=== PATIENT | female | born 1970 | race Caucasian/White ===

== ENCOUNTER 2021-07-05 15:53 | Outpatient (CLI) | payer OTHER, SELFPAY ==
[2021-07-05 15:54] LABS: Bacteria 0 SEEN /hpf (None Seen); Mucous, Urine 0 SEEN /hpf (<or=2+); Red Blood Cells-Urine 0 SEEN /hpf (0-5); White Blood Cells 0 SEEN /hpf (0-5)
[2021-07-05 17:10] LABS: Color, Urine Straw (Yellow); Glucose, Dipstick Normal (Normal); Ketone-Dipstick Negative (Negative); Leukocyte Esterase-Dipstick Negative /ul (Negative); Nitrite-Dipstick Negative (Negative); Occult Blood-Urine Negative /ul (Negative); Protein-Dipstick Negative (Negative); Urine Bilirubin Dipstick Negative (Negative); Urine Clarity Clear (Clear); Urine Urobilinogen Normal (Normal)
[2021-07-05 17:18] LABS: Squamous Epithelial Cells - UA 0-5 SEEN /hpf (5-10)
[2021-07-05 17:20] LABS: Hematocrit 37.1 % (37-47); Hemoglobin 9.4 g/dL (12.0-15.0); Red Blood Count 5.23 M/mm3 (4.2-5.4); White Blood Count 9.9 K/mm3 (4.4-11.0)
[2021-07-05 17:21] LABS: Differential Indicated SCAN CRITERIA MET; Mean Corp Hgb Conc 25.3 g/dL (32-36); Mean Corpuscular Volume 70.9 fL (81-99); Mean Platelet Vol. 8.2 fl (6.2-12.0); POSITIVE COUNT NO; POSITIVE DIFFERENTIAL NO; POSITIVE MORPHOLOGY YES; Platelet Count 637 K/mm3 (150-450); RBC Distribution Width CV 21.3 % (11.6-14.6); RBC Distribution Width SD 52.7 fl (35.1-43.9)
[2021-07-05 17:22] LABS: Absolute Lymphocyte Count 1.76 X10^3/uL (0.83-4.51); Absolute Neutrophil Count 7.1 X10^3/uL (2.0-7.7); Basophil# 0.05 X10^3/uL; Basophil% 1.2 % (0-1); Eosinophil# 0.14 X10^3/uL; Eosinophils% 0.5 % (0-5); Lymphocyte # 1.76 X10^3/ul (0.83-4.51); Lymphocyte % 17.8 % (19-41); Monocyte# 0.69 X10^3/uL; Neutrophil % 72.1 % (47-70)
[2021-07-05 17:23] LABS: Anisocytosis 2+; Hypochromasia 2+; Microcytosis 1+; Platelet Estimate MKD INC (ADEQ); Polychromasia RARE; Red Cell Morphology N CHROM NORMAL (NORM C&C)
[2021-07-05 17:24] LABS: Ovalocyte RARE
[2021-07-05 17:26] LABS: ALB/GLOB Ratio 0.7 RATIO (0.9-2.4); AST(SGOT) 10 U/L (15-37); Alanine Aminotransfer ALT/SGPT 22 U/L (13-56); Albumin, Serum 3.1 g/dL (3.2-5.0); Alkaline Phosphatase 124 U/L (45-117); Anion Gap 2 (5-15); BUN 7 mg/dL (7-18); BUN/Creat Ratio 9.6 RATIO (10-20); Calcium,Total 8.4 mg/dL (8.5-10.1); Chloride 106 mmol/L (98-107); Creatinine, Serum 0.73 mg/dL (0.55-1.02); EST Glomerular Filtration Rate 89 mL/min (>60); Est Glom Filt Rate - Afr Amer 108 mL/min (>60); Globulin 4.7 g/dL (2.2-4.2); Glucose 108 mg/dL (74-106); Protein, Total 7.8 g/dL (6.4-8.2); Sodium Level 139 mmol/L (136-145)
[2021-07-06 15:58] LABS: Ferritin 4 ng/mL (8-252); Iron 12 ug/dL (50-170); Iron Binding Capacity,Total 477 ug/dL (250-450)
== END 2021-07-05 23:59 | disposition home or self-care (01) ==
LOC: BIMLAB 15:54
PROVIDERS: PCP Nurse Practitioner Family; Referring Provider Internal Medicine; Visit Provider Internal Medicine
DX: R10.31 Right lower quadrant pain (principal); D64.9 Anemia, unspecified
CPT/HCPCS: 36415; 80053; 81001; 82728; 83540; 83550; 85025

== ENCOUNTER 2021-08-08 14:18 | Outpatient (CLI) | payer OTHER, SELFPAY | END 2021-08-08 23:59 | disposition home or self-care (01) | LOC: BIMLAB 14:19 | PROVIDERS: PCP Nurse Practitioner Family; Referring Provider Nurse Practitioner Family; Visit Provider Nurse Practitioner Family | DX: R05.9 Cough, unspecified (principal); Z20.822 Contact with and (suspected) exposure to COVID-19 | CPT/HCPCS: 87635; U0003; U0005 ==

== ENCOUNTER 2022-01-25 06:12 | Emergency (ER) | payer OTHER, SELFPAY ==
[2022-01-25] VITALS (7 sets, daily range): BP systolic 133–205; BP diastolic 63–99; PULSE 72–93; RESP 16–37; TEMP 36.4–36.7; O2SAT 92–100; BMI 41.8
--- NOTE | 2022-01-25 06:13 | RAD_ITS ---
STUDY: X-RAY - RIGHT WRIST REASON FOR EXAM: Female, 51 years old. Pain and swelling after falling. TECHNIQUE: 3 view(s) of the wrist were obtained. COMPARISON: Forearm radiographs same date. FINDINGS: Acute comminuted distal radial fracture, extending into the articular surface, with impaction and peripheral splaying of fracture fragments and mild dorsal angulation. Mildly displaced ulnar styloid fracture which is difficult to age. No other fracture is evident. The more proximal forearm and more distal carpus are intact. RAD/Wrist min 3 Views IMPRESSION: Acute distal radial fracture described above. Ulnar styloid fracture which is difficult to age. Electronically Signed: Migue Agudelo MD at 6:56 EDT [place] Location ID and State: [address] [place] [address] Tel , Service support ,
--- NOTE | 2022-01-25 06:14 | EDS_ITS ---
HPI History of Present Illness Chief Complaint: Fall Informant: patient Narrative Narrative: Patient is a [id number] 51-year-old female presenting with right wrist pain. Around 230 this morning patient was sleepy but looking at Facebook when she fell. She does not remember exactly how she fell but she thinks she fell backwards. She states she did hit her head but denies any loss of conscious. She developed pain in her right wrist. She did not want a wake her up which is why she waited a couple hours to come in. She denies any numbness or tingling in her hand. She has swelling and significant pain in her right wrist. Has had a prior fracture of her right wrist and was in an external fixator. This was before 2014 when she lived in [place]. Denies any other injuries. Notes that she has had a cough and been sick for couple days. No other complaints at this time. [facility] Medical History Allergies Anemia Back problem Breast lump Broken wrist Cough Cough Depression with anxiety Diarrhea Elbow fracture History of drug abuse History of gallstones History of pneumonia IBS (irritable bowel syndrome) Insomnia RLQ abdominal pain Tobacco abuse Home Medications aripiprazole 15 mg tablet 15 mg PO DAILY #90 tabs 09/07/21 [Rx Last Taken Unknown] trazodone 100 mg tablet 100 mg PO DAILY #90 tabs 09/07/21 [Rx Last Taken Unknown] hydrocodone-acetaminophen 5-325mg 5mg-325mg 1 tab PO Q6H PRN pain 3 days #12 tabs 01/25/22 [Rx Last Taken Unknown] Allergy/AdvReac Type Severity Reaction Status Date / Time No Known Allergies Allergy Verified 08/08/21 13:28 Family History Other Alcoholism Anxiety CVA (cerebral vascular accident) Depression Diabetes Mental disorder Myocardial infarction Suicide attempt Surgical History History of back surgery Social History Smoking Status: Current every day smoker tobacco type: cigarettes alcohol intake: never substance use type: does not use what type of physical activity do you participate in: none ROS ROS ED Constitutional Constitutional ED: Denies chills or fever(s) Eyes Eyes: Denies change in vision ENT ENT ED: Reports rhinorrhea and other Details: nasal congestion Cardiovascular Cardiovascular: Denies chest pain Respiratory/Chest Respiratory/Chest: Reports cough; Denies dyspnea Gastrointestinal Gastrointestinal: Denies abdominal pain or nausea Musculoskeletal Musculoskeletal: Reports other Details: right wrist pain Integumentary Denies rash Neurologic Neurologic: Denies headache(s) or paresthesias Psychiatric Psychiatric: Denies anxiety Hematologic/Lymphatic Hematologic/Lymphatic: Denies easy bleeding or easy bruising EXAM Physical Exam Const Vital Signs: 01/25/22 06:13 01/25/22 08:01 01/25/22 08:05 Temperature 98.1 F 97.6 F L Temperature Source Temporal Pulse Rate 91 82 Pulse Rate [1 (Initial Baseline)] 81 Pulse Rate [2] 86 Pulse Rate [3] 93 Pulse Rate [4] 89 Pulse Rate [5] 77 Respiratory Rate 20 H 25 H Respiratory Rate [1 (Initial Baseline)] 18 Respiratory Rate [2] 37 H Respiratory Rate [3] 20 H Respiratory Rate [4] 20 H Respiratory Rate [5] 18 Blood Pressure 138/82 H 161/80 H Blood Pressure [1 (Initial Baseline)] 161/80 H Blood Pressure [2] 205/99 H Blood Pressure [3] 170/71 H Blood Pressure [4] 171/82 H Blood Pressure [5] 137/72 H Blood Pressure Mean 100 Pulse Ox 96 94 Oxygen Delivery Method Room Air Room Air Oxygen Delivery Method [1 (Initial Baseline)] Nasal Cannula Oxygen Delivery Method [2] Nasal Cannula Oxygen Delivery Method [3] Room Air Oxygen Delivery Method [4] Room Air Oxygen Delivery Method [5] Room Air Oxygen Flow Rate (L/min) [1 (Initial Baseline)] 2 Oxygen Flow Rate (L/min) [2] 2 Fraction of Inspired Oxygen (FIO2) 01/25/22 08:26 01/25/22 08:34 01/25/22 08:37 Temperature Temperature Source Pulse Rate 72 Pulse Rate [1 (Initial Baseline)] Pulse Rate [2] Pulse Rate [3] Pulse Rate [4] Pulse Rate [5] Respiratory Rate 16 Respiratory Rate [1 (Initial Baseline)] Respiratory Rate [2] Respiratory Rate [3] Respiratory Rate [4] Respiratory Rate [5] Blood Pressure 159/92 H Blood Pressure [1 (Initial Baseline)] Blood Pressure [2] Blood Pressure [3] Blood Pressure [4] Blood Pressure [5] Blood Pressure Mean Pulse Ox 97 Oxygen Delivery Method Room Air Room Air Room Air Oxygen Delivery Method [1 (Initial Baseline)] Oxygen Delivery Method [2] Oxygen Delivery Method [3] Oxygen Delivery Method [4] Oxygen Delivery Method [5] Oxygen Flow Rate (L/min) [1 (Initial Baseline)] Oxygen Flow Rate (L/min) [2] Fraction of Inspired Oxygen (FIO2) 57 Positive well nourished and well developed General Appearance ED: well developed and NAD HEENT Reports TM's clear HEENT Narrative: Cerumen impaction of the right ear atraumatic Tympanic Membrane ED: Yes TM's clear left Throat: other Eyes PERRL and EOMs intact bilaterally Neck full ROM Chest Wall inspection of chest normal and palpation of chest normal Resp normal respiratory effort Resp Narrative: coarse breath sounds throughout. Auscultation: Negative for rhonchi or wheezes Cardio regular rhythm and no murmurs Rate: regular rate GI normal to inspection, nondistended, normoactive bowel sounds and non-tender Extremity Extremity Narrative: Deformity and tenderness of the right wrist. Soft tissue swelling of the right hand. Normal range of motion of the fingers. No other pinpoint bony tenderness or deformity appreciated. Neuro oriented x3 and no focal motor deficits Sensorium / Orientation: alert Psych mental status grossly normal Skin no rashes or lesions noted and no wounds PROC Procedures Upper Extremity Splints Upper Extremity Splint: Orthoglass and - (AP) Splint Fabrication: Fabricated Location: Right Procedural Sedation 1 (Initial Baseline): Consent Signed: Yes Any Problems With Anesthesia: No You/Your family experience fever (hyperthermia) w/anesthesia: Unknown Sedation medication: Etomidate Dose: 10 Route: IV Mallampati Score: Class III ASA Classification: I Other Procedures Procedure(s): Right wrist reduction Patient sedated with 10 mg IV etomidate. Monitored with continuous end-tidal CO2, pulse ox and telemetry. Closed reduction attempted of the right wrist. Patient tolerated procedure well with no immediate complications. MDM MDM MDM Narrative Medical decision making narrative: Patient evaluated after mechanical fall with subsequent right wrist injury. She has deformity of her wrist but she also the prior fracture. Will obtain x-ray, place IV and give IV morphine for pain control. Patient's had cold for couple days we will check a COVID swab. Patient states she did land on her back and hit her head however she denies loss of consciousness. She is on any blood thinners. She does not think she needs any head imaging at this time. She has no focal neurologic deficits on exam. No signs of obvious head injury. X-ray interpreted by myself shows a acute distal radius fracture with volar angulation. There also appears to be an associated distal ulnar fracture that is not impacted or significantly angulated. Patient is given IV morphine for pain control. Hematoma block performed using 8 mg of Marcaine 0.5%. Area is initially sterilized with Betadine and allowed to dry. Patient is placed in finger traps for at least 20 minutes. Attempt for reduction performed however patient does not tolerate it. Procedure sedation performed with etomidate. See procedure note. Postreduction x-rays obtained. Interpretation by myself with postreduction x-ray shows resolution of dorsal angulation and improvement of anatomical alignment of the fracture segment. Case discussed with Ortho on- call, Dr. Galloway. He will follow-up with the patient outpatient. Patient is placed in a splint. Is discharged home with pain medication and splint care instructions. She is neurovascularly intact. Radiography Diagnostic Testing: Clinical Impression(s) from Imaging Studies Wrist X-Ray 01/25/22 06:13 IMPRESSION: Acute distal radial fracture described above. Ulnar styloid fracture which is difficult to age. Electronically Signed: Migue Agudelo MD at 6:56 EDT [place] Location ID and State: [facility] / [place] Tel , Service support , Forearm X-Ray 01/25/22 06:40 IMPRESSION: Acute distal radial fracture described above. Ulnar styloid fracture which is difficult to age. Electronically Signed: Migue Agudelo MD at 6:55 EDT [place] Location ID and State: [facility] / [place] Tel , Service support , Discharge Plan Triage Chief Complaint: Fall ED Provider: Lisa Ortega Dx/Rx/DC Orders Clinical Impression: Closed fracture of right distal radius and ulna, Fall Instructions: ED Fracture, Wrist, General Prescriptions: New hydrocodone-acetaminophen 5-325 mg tablet 1 tab PO Q6H PRN (Reason: pain) 3 Days Qty: 12 0RF No Action aripiprazole 15 mg tablet 15 mg PO DAILY Qty: 90 1RF trazodone 100 mg tablet 100 mg PO DAILY Qty: 90 1RF Primary Care Provider: Jai Santos NP Referrals: Nimesh Bosch DO [Med Staff - Active Staff] - 3-5 Days Jai Santos NP, RADIOLOGICAL TECHNOLOGIST-C [Primary Care Provider] - Activity Restrictions/Additional Instructions: You may also take ibuprofen for pain. Ice regularly through the splint. Do not take the splint off or get it wet. Disposition Disposition: Home, Self Care
[2022-01-25] MEDS: Morphine 4 MG/ML Syringe IV ×2 (06:28→07:12)
--- NOTE | 2022-01-25 06:40 | RAD_ITS ---
STUDY: X-RAY - RIGHT RADIUS AND ULNA REASON FOR EXAM: Female, 51 years old. Pain and swelling after injury. TECHNIQUE: 2 view(s) of the forearm. COMPARISON: Wrist radiographs same date. FINDINGS: Acute comminuted distal radial fracture, extending into the articular surface, with impaction and peripheral splaying of fracture fragments and mild dorsal angulation. Mildly displaced ulnar styloid fracture which is difficult to age. No other fracture is evident. The more proximal forearm and more distal carpus are intact. RAD/Forearm 2 Views IMPRESSION: Acute distal radial fracture described above. Ulnar styloid fracture which is difficult to age. Electronically Signed: Migue Agudelo MD at 6:55 EDT [place] Location ID and State: [address] [place] [address] Tel , Service support ,
[2022-01-25] MEDS: Bupivacaine Mpf 0.5% 30 ML VIAL INFILT (07:12)
[2022-01-25] MEDS: Etomidate 20 MG/10 ML Vial 10 MG IV (08:00)
--- NOTE | 2022-01-25 08:10 | CPS ---
Jaw thrust held during procedure for 2-4 minutes to maintain etco2 around 55.
--- NOTE | 2022-01-25 08:33 | RAD_ITS ---
STUDY: X-RAY - RIGHT WRIST REASON FOR EXAM: Female, 51 years old. Post reduction TECHNIQUE: 3 view(s) of the wrist were obtained. COMPARISON: Comparison is made with prior study done earlier today. FINDINGS: The patient is status post reduction of the distal radial and ulnar styloid fractures. There is good alignment. RAD/Wrist min 3 Views IMPRESSION: Satisfactory reduction. Electronically Signed: Trevor Cornejo MD at 8:53 EDT ,
== END 2022-01-25 09:05 | disposition home or self-care (01) ==
PROVIDERS: Emergency Provider Emergency Medicine; PCP Nurse Practitioner Family; Visit Provider Emergency Medicine
DX: S52.501A Unspecified fracture of the lower end of right radius, initial encounter for closed fracture (principal); W19.XXXA Unspecified fall, initial encounter
CPT/HCPCS: 73090; 73110; 87811; 96374; 96375; 96376; 99251; 99283; J7030; A4216; G0463

== ENCOUNTER 2022-02-05 05:39 | Day surgery (SDC) | payer OTHER, SELFPAY ==
--- NOTE | 2022-02-01 09:56 | SUR.PREOP ---
called pt, 02/01, to make sure she had transportation to and from the hospital on friday. her will bring her and taker her home. this call made d/t note on kardex from PAT nurse that said unable to get ride pre op
[2022-02-05] MEDS: Lactated Ringers 1,000 ML 15 ML IV ×2 (06:15→10:14)
[2022-02-05 06:27] VITALS: BP 121/49; PULSE 86; RESP 20; TEMP 36.8; O2SAT 96; BMI 39.9
--- NOTE | 2022-02-05 07:11 | PCM.HP.BLA ---
History and Physical Date of Admission: 02/05/22 [facility] [address] [place] [address] OFFICE VISIT Date of Service:? 01/28/22 MR#: [id number] Acct: [id number] Name:? KRIS RILEY Rep #: [id number] : 1970 ? ? Provider: Dr. Nimesh Bosch DO Age/Sex:? 52/F ? ? Location: [facility] [place] Status: Signed Intake Vital Signs ? 01/25/2206:13 Height 5 ft 3 in Weight: 235 lb 14.314 oz BMI 41.8 BP 138/82 H Respiration 20 H Pulse 91 Temp 98.1 F Temp Source Temporal Pulse Oximetry (%) 96 Intake Visit Reasons:?RIGHT WRIST Is patient in pain?: Yes Pain scale (1-10): 9 Allergies amoxicillin [From Augmentin] Allergy (Mild, Verified 01/28/22 08:54) Diarrheaclavulanic acid [From Augmentin] Allergy (Mild, Verified 01/28/22 08:54) Diarrheasulfamethoxazole [From Bactrim] Adverse Reaction (Intermediate, Verified 01/28/22 08:54) shut liver downtrimethoprim [From Bactrim] Adverse Reaction (Intermediate, Verified 01/28/22 08:54) shut liver down Medications aripiprazole 15 mg tablet 15 mg PO DAILY #90 tabs 09/07/21 [Rx Confirmed 01/28/22] trazodone 100 mg tablet 100 mg PO DAILY #90 tabs 09/07/21 [Rx Confirmed 01/28/22] hydrocodone-acetaminophen 5-325mg 5mg-325mg 1 tab PO Q6H PRN pain 3 days #12 tabs 01/25/22 [Rx Confirmed 01/28/22] hydrocodone-acetaminophen 5-325mg 5mg-325mg 1 tab PO Q6H PRN pain 7 days #28 tabs 01/28/22 [Rx Confirmed 01/28/22] PFSH Medical History? Allergies Anemia Back problem Breast lump Broken wrist Cough Cough Depression with anxiety Diarrhea Elbow fracture History of drug abuse History of gallstones History of pneumonia IBS (irritable bowel syndrome) Insomnia RLQ abdominal pain Tobacco abuse Surgical History? History of back surgery Family History? Other Alcoholism Anxiety CVA (cerebral vascular accident) Depression Diabetes Mental disorder Myocardial infarction Suicide attempt Social History? Smoking Status:? Current every day smoker tobacco type: cigarettes alcohol intake:? never substance use type:? does not use what type of physical activity do you participate in:? none HPI RIGHT WRIST Details: Parts of this documentation were recorded by a scribe, this documentation accurately reflects the service provided and the decisions made by me, Dr. Nimesh Bosch, 01/28/22 0867. KRIS RILEY is a 52 year old F here today for right wrist fracture. She states that she fell on 01/25/22, landing directly on her right wrist. She fell backwards, and believes she fell asleep while standing. Patient had significant pain and went to the ED, where she had xrays which showed a fracture. She was reduced and placed into a splint which she has kept on at all times. Patient is able to move her fingers slightly. She has swelling into her fingers. Patient is taking hydrocodone- acetaminophen twice daily which is helpful. Patient denies any numbness or tingling. She has fractured her right wrist previously in [address] [place] [address], and had to have surgery in [place] which was an external fixator which she was not happy with but did well afterwards. She is right hand dominant. Ortho Exam General General: Yes no acute distress Neurologic: Yes alert and Yes oriented x3 Psychologic: Yes reasonable and appropriate Right Wrist/Hand Skin/Wound: Yes Swelling and Yes capillary refill normal WRIST: able to abduct index finger slightly, ulnar fingers are not moving much with abduction but she can flex and extend all minimally. Swelling noted Left Wrist/Hand Skin/Wound: Yes Swelling Supplemental Info Spoke with the patient about the wrist fracture. She does have a chronic deformity from prior injury/surgery, however this new fracture is intra-articular with greater than 3 fragments recommended the patient have surgery open reduction internal fixation.? Risk benefits alternatives of surgical versus nonsurgical intervention thoroughly reviewed with the patient and her .? She is able to move her wrist 1-2 weeks after surgery, but is not able to lift any weight for about 6 weeks, restrictions may be longer. Spoke with the patient and her about the risks of surgery. She will be in a splint for 1-2 weeks after surgery and then she is able to shower. She needs to work on decreasing her swelling by elevating her wrist for the next week. She may ice her arm and work on moving her fingers. She should not taking any ibuprofen or aleve.? She will likely need occupational therapy following her surgery. She did request and I did provide prescription for [place] No. 28 tabs. Reviewed the pre-operative plans with the patient. Risks and benefits of the procedure were fully explained, including but not limited to infection, neurovascular injury, continued pain, arthritis, stiffness, need for further surgery, re-injury, DVT, PE, general risks of anesthesia. The patient understands all the risks and does wish to proceed with written consent. Follow up for 2 week post op or sooner if pain, swelling, numbness or associated symptoms, or concerns develop.? All questions answered. Patient in agreement of plan. Coding Level of Care Code Off vis,new,level 3 Diagnoses Closed fracture of right distal radius and ulna? S52.501A; S52.601A Assessment and Plan Assessment and Plan (1) Closed fracture of right distal radius and ulna: ?Status:?Acute ? ? ? Medications: New hydrocodone-acetaminophen 5-325 mg 1 TAB? PO Q6H 7 days PRN 28 tabs 0RF pain S52.501A - Unspecified fracture of the lower end of right radius, initial encounter for closed fracture, S52.601A - Unspecified fracture of lower end of right ulna, initial encounter for closed fracture ? 01/28/22 0933 <Electronically signed by Nimesh Bosch DO> Date Nimesh Bosch DO Cosigner Signature: Date (if applicable) ? CC: ? ~ I have re-examined the patient. There are no clinical changes since date of exam
--- NOTE | 2022-02-05 07:30 | RAD_ITS ---
STUDY: X-RAY - RIGHT WRIST REASON FOR EXAM: Intraoperative fluoroscopy for ORIF distal radius. TECHNIQUE: 2 intraoperative images of the wrist were obtained. COMPARISON: Radiographs 01/25/2022. FINDINGS: There is an orthopedic plate and screws transfixing a distal radial fracture. 75.6 seconds of fluoroscopy time was used. Electronically Signed: Joaquim Torre MD at 10:53 EDT , RAD/Wrist min 3 Views IMPRESSION: undefined
[2022-02-05] MEDS: Cefazolin 2 GM in 0.9% Normal Saline 100 ML IV (08:00)
--- NOTE | 2022-02-05 09:34 | OP.PCM_ITS ---
Operative Report Date of Procedure: 02/05/22 Preoperative diagnosis: Displaced comminuted intra-articular distal radius fracture Postoperative diagnosis: [Same] Procedure: ORIF of the distal radius Implants: Synthes distal radius variable angle locking plate Tourniquet time: 64 minutes 250 mmHg Complications: [None] Indication for procedure: 52-year-old female patient who had a ground-level fall sustaining injury to her right wrist. She did sustain an intra-articular comminuted dorsally angulated distal radius fracture that was reduced in the ER. Patient did have prior wrist fracture years ago which was treated with external fixation. Due to the nature of the fracture pattern we discussed risks benefits and alternatives of conservative versus surgical intervention. Including the risk of bleeding infection nerve artery tissue damage need for further surgery continued pain postoperative stiffness need for postoperative physical therapy and the expected postoperative course. Procedure: The patient was met in the preoperative holding area the operative extremity was identified by both patient and physician and marked. Patient was met by anesthesia she was brought back to the operating room on a wheeled cart and transferred to the operating table in the supine position anesthesia was started. A well-padded tourniquet was placed on the upper arm of the operative extremity. She was prepped and draped in the usual sterile fashion. A Time out was called to ensure the proper patient procedure and extremity were being contemplated. A 15 blade scalpel was used to make a linear incision over the FCR tendon this was carried down through the skin and subcutaneous tissue. Electrocautery was used to maintain hemostasis. Lois retractors were used. The FCR tendon sheath was incised and the FCR tendon was mobilized radially. A deep blade scalpel was used to perforate the fascia of the deep FCR tendon she ath and Littler scissors were used to dissect proximally and distally. Blunt dissection was performed a reyna was placed on the radial and ulnar side of the radius. The pronator quadratus was partially torn from the injury and was released off the radial border of the radius with electrocautery and was elevated with a angel elevator. There was increased scarring from previous fracture the Hohmann retractors were then placed deep to this muscle. The fracture site was visualized and was freed of hematoma and clot debris with the use of small rongeur and [place]. The fracture was then reduced with the use of a [place] and ulnar deviation and wrist flexion. This was checked under fluoroscopy to ensure that an adequate reduction could be performed. A plate was then positioned over the fracture site and temporarily fixed to the bone with K wires. A cortical screw was then placed in the shaft we then placed 2 cortical screws in the distal fragment to compress the plate to the bone as well as compress the intra-articular fracture fragments. Due to the prior deformity the the plate did not seat directly on the bone on all aspects of the distal fragment. I did replace one of the cortical screws distally with a locking screw and left one cortical screw which had excellent purchase and sequential locking screws were placed distally this was checked on both AP and lateral projections to ensure screw placement was not penetrating the joint and was in the proper location. Bone drill sleeve was used for the radial styloid screw and a variable angle fashion. The remainder of the cortical screws were placed in the shaft. And the fracture and hardware were visualized in both AP and lateral projections in good alignment and fracture positioning. The wound was thoroughly irrigated. Pronator quadratus was not repairable. A subcutaneous stitch with 3-0 Vicryl was performed followed by 4-0 nylon vertical mattress stitches. Followed by Xeroform 4 x 4 ABD web roll stockinette more web roll and an Naif wrap. The tourniquet was let down. There was no complications intraoperatively and the patient was brought back to the PACU in stable condition where she received an axillary block. All counts were correct.
--- NOTE | 2022-02-05 09:40 | DCINST_ITS ---
Discharge Instructions Dressing / Incision Call your doctor if you observe: Shortness of breath and Chest pain Additional Dressing/Incision Instructions:: Strict elevation of operative extremity above heart for next 72 hours. Ice 15 minutes on 15 minutes off. Continue ice and elevation for 14 days postoperatively. Encourage full finger range of motion. No lifting pushing or pulling more than a coffee cup. Must keep splint on clean and dry. Follow-up in office in 2 week. Do not mix pain medication only take what was given to you postoperatively. May add and supplement with Tylenol and OTC NSAID. Do not combine with alcohol. Narcotic medication can be addictive only take what is needed. Follow Up Care Please Follow Up With: Nimesh Bosch DO When: 2 weeks Test Results: Test results from this visit will be discussed in further detail at your follow- up appointment, if applicable. Discharge Plan Admission Primary Reason for Your Visit: right wrist fracture surgery Attending Provider: Nimesh Bosch Primary Care Provider: Jai Santos NP Discharge Orders/Prescriptions Prescriptions: New oxycodone 5 mg tablet 5 - 10 mg PO Q4H PRN (Reason: pain) 5 Days Qty: 30 0RF No Action hydrocodone-acetaminophen 5-325 mg tablet 1 tab PO Q6H PRN (Reason: pain) 3 Days Qty: 12 0RF duloxetine 60 mg capsule,delayed release(DR/EC) 50 mg PO DAILY Label Comments: TAKE 1 CAPSULE BY MOUTH ONCE DAILY melatonin 10 mg Tablet 10 mg PO QHS trazodone 100 mg tablet 100 mg PO QHS aripiprazole 15 mg tablet 15 mg PO DAILY Qty: 90 1RF Referrals / Follow Up: Jai Santos NP, REGIONAL MERCHANDISING MANAGER-C [Primary Care Provider] - Disposition Disposition (needs filled in before D/C Order can be placed): Home, Self Care
[2022-02-05 09:46] VITALS: BP 121/49; BP 163/81; PULSE 108; RESP 18; TEMP 36.5; O2SAT 96
[2022-02-05 10:00] VITALS: BP 121/49; BP 160/70; PULSE 102; RESP 18; O2SAT 95
[2022-02-05 10:15] VITALS: BP 121/49; BP 153/75; PULSE 101; RESP 18; O2SAT 94
[2022-02-05 10:24] VITALS: BP 121/49; BP 138/61; PULSE 96; RESP 18; TEMP 36.5; O2SAT 94
[2022-02-05] MEDS: Cefazolin 1 GM/50 ML BAG IV (10:46)
[2022-02-05 11:15] VITALS: BP 121/49; BP 137/64; PULSE 93; RESP 16; TEMP 36.6; O2SAT 93
== END 2022-02-05 11:33 | disposition home or self-care (01) ==
LOC: SDC 05:41 → AC 05:42
PROVIDERS: PCP Nurse Practitioner Family; Referring Provider Orthopaedic Surgery; Visit Provider Orthopaedic Surgery
PROC: (CPT 25608; principal; 2022-02-05 07:10)
DX: S52.571A Other intraarticular fracture of lower end of right radius, initial encounter for closed fracture (principal); W18.39XA Other fall on same level, initial encounter; F32.9 Major depressive disorder, single episode, unspecified; F41.9 Anxiety disorder, unspecified; K58.9 Irritable bowel syndrome, unspecified; G47.00 Insomnia, unspecified; F17.210 Nicotine dependence, cigarettes, uncomplicated; Z79.899 Other long term (current) drug therapy
CPT/HCPCS: 25608; 64450; 01830; 73110; 76000; 93005; C1713; J7120; J2405

== ENCOUNTER → 2022-03-11 | Outpatient (CLI) | payer OTHER, SELFPAY ==
[2022-03-11 12:27] LABS: Absolute Lymphocyte Count 1.69 X10^3/uL (0.83-4.51); Basophil# 0.04 X10^3/uL; Basophil% 0.4 % (0-1); Eosinophil# 0.05 X10^3/uL; Eosinophils% 0.5 % (0-5); Hematocrit 34.6 % (37-47); Hemoglobin 8.7 g/dL (12.0-15.0); Lymphocyte # 1.69 X10^3/ul (0.83-4.51); Lymphocyte % 15.7 % (19-41); Mean Corp Hgb Conc 25.1 g/dL (32-36); Mean Corpuscular Hgb 17.4 pg (27.0-32.0); Mean Corpuscular Volume 69.2 fL (81-99); Mean Platelet Vol. 8.6 fl (6.2-12.0); Monocyte# 0.91 X10^3/uL; Monocyte% 8.5 % (0-10); NRBC Flagged by Analyzer 0 % (0-5); Neutrophil # 8.02 X10^3/uL (2.7-7.7); Neutrophil % 74.5 % (47-70); POSITIVE MORPHOLOGY YES; Platelet Count 491 K/mm3 (150-450); RBC Distribution Width CV 21.5 % (11.6-14.6); RBC Distribution Width SD 51.9 fl (35.1-43.9); White Blood Count 10.8 K/mm3 (4.4-11.0)
[2022-03-11 13:10] LABS: Differential Indicated SCAN CRITERIA MET
[2022-03-11 13:38] LABS: ALB/GLOB Ratio 0.7 RATIO (0.9-2.4); AST(SGOT) 14 U/L (15-37); Alanine Aminotransfer ALT/SGPT 20 U/L (13-56); Albumin, Serum 3.2 g/dL (3.2-5.0); Alkaline Phosphatase 160 U/L (45-117); Anion Gap 6 (5-15); BUN 15 mg/dL (7-18); BUN/Creat Ratio 18.6 RATIO (10-20); Chloride 106 mmol/L (98-107); Cholesterol 129 mg/dL (200); EST Glomerular Filtration Rate 79 mL/min (>60); Est Glom Filt Rate - Afr Amer 96 mL/min (>60); Globulin 4.6 g/dL (2.2-4.2); Glucose 87 mg/dL (74-106); High Density Lipoprotein 37 mg/dL; Potassium 4.3 mmol/L (3.5-5.1); Protein, Total 7.8 g/dL (6.4-8.2); Sodium Level 138 mmol/L (136-145); Thyroid Stim Hormone (TSH) 0.82 uIU/mL (0.358-3.74); Triglycerides 74 mg/dL; Very Low Density Lipoprotein 15 mg/dL (5-40)
[2022-03-11 13:39] LABS: Anisocytosis 2+; Differential Comment SCANNED; Macrocytosis 1+; Microcytosis 1+
[2022-03-11 15:06] LABS: Ferritin 3 ng/mL (8-252); Iron 13 ug/dL (50-170); Iron Binding Capacity,Total 513 ug/dL (250-450)
== END | disposition home or self-care (01) ==
LOC: BIMLAB 10:45
PROVIDERS: PCP Nurse Practitioner Family; Referring Provider Physician Assistant; Visit Provider Physician Assistant
DX: Z00.00 Encounter for general adult medical examination without abnormal findings (principal); D64.9 Anemia, unspecified
CPT/HCPCS: 36415; 80053; 80061; 82728; 83540; 83550; 84443; 85025

== ENCOUNTER → 2022-03-19 | Outpatient (CLI) | payer OTHER, SELFPAY ==
--- NOTE | 2022-03-19 13:28 | BI_ITS ---
MAMMOGRAPHY - BILATERAL SCREENING REASON FOR EXAM: Female, 52 years old. Routine annual screening examination. PERTINENT HISTORY: Non-contributory. TECHNIQUE: Digital bilateral breast jazzy (3D mammographic acquisition) in the CC and MLO projections. 2-D mediolateral oblique (MLO) and craniocaudad (CC) views of both breasts were obtained. CAD: Full Field Digital Mammography with Computer Added Detection was performed. COMPARISON: None. Baseline examination. FINDINGS: Breast Composition: The breasts are almost entirely fatty. There are no dominant masses or suspicious calcifications. No other significant abnormalities are identified. There is a 2.1 cm fat-containing nodule in the left axilla. BI/SCRN MAMM (CAD)W/JAZZY BILAT IMPRESSION: Negative screening mammogram. Yearly followup mammogram recommended. (A) ASSESSMENT CATEGORY: BIRADS Category 2: Benign. A letter regarding these results will be sent to the patient by the facility within 30 days. Approximately 10% of breast cancers are not detected by mammography. A normal mammogram should not delay biopsy of a clinically suspicious abnormality. [id number] Electronically Signed: Trevor Cornejo MD at 14:25 EDT ,
== END | disposition home or self-care (01) ==
LOC: OPBI 13:27
PROVIDERS: PCP Nurse Practitioner Family; Referring Provider Physician Assistant; Visit Provider Physician Assistant
DX: Z12.31 Encounter for screening mammogram for malignant neoplasm of breast (principal)
CPT/HCPCS: 77063; 77067

== ENCOUNTER 2022-04-03 11:30 | Outpatient (RCR) | payer OTHER, SELFPAY ==
--- NOTE | 2022-03-06 09:43 | HP.OTEVAL ---
Patient's Visit Information KRIS RILEY is a 52 year old F, referred to Occupational Therapy by Dr. Nimesh Bosch DO, with a diagnosis of right distal radius fx. Date of Evaluation: 03/06/22 Occupational Therapist: Blessing Carlson, RANDI/Virginie, CHT - Subjective This 52 year old female was seen for OT eval with dx of right distal radius fx. pt states 01/25/22 she had a fall. Pt states she went to ER later and found it was fx. pt states she did see. Dr. Bosch 3 days later and had sx on 02/05/22. pt is currently 4 weeks and 1 day s/p from distal radius ORIF. Pt does not work. pt is right handed and currently her and her son are helping with daily tasks. pt would like to return to her PLOF. pt states she is out of her wrist brace all of the time and feeling good. still limited with ROM and strength. 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 - Pain right wrist 4 Pain Intensity Range: 4 - ROM Forearm: right forearm sup 40* left 70* Wrist: right 60/20 left 70/65 - Strength Manager Multicultural: right will test later date left 40# Lateral Pinch: right will test later date left 8# Tripod Pinch: right will test later date left 10# - Sensation Sensation Comments: denies - Quick DASH-Disab of Arm,Shoulder& Hand Quick DASH Score: 61.3625 - Goals Goal:ROM equal to unaffected hand: Yes Goal:Manager Multicultural/Pinch strength at least 75% of unaffected hand: Yes Goal:No pain with affected hand use: Yes Goal:Full use of affected hand in daily activities including: Yes Goal:Decrease scar hypersensitivity: Yes - Rehabilitation General Assessment: pt s/p 4 weeks and 1 day from right distal radius fx. pt demo with limited ROM and weakness increasing need of assistance with ADLs and IADLS. pt would benefit from skilled OT services 2-3x week for 6 weeks to assist pt in returning to her PLOF. Today therapist ed. pt on AROM, PROM forearm and wrist ec. along with scar mtg. pt demo understanding and agree to POC. Rehabilitation Potential: Good - Anticipated Interventions A/AAROM/PROM, Strengthening, Triggerpoint Release, Desensitization, Modalities, Orthoses, Joint Protection/Energy Conservation, Ergonomic Education, Fine Motor Coord/Richar, Education re assistive Equipment, Education re Diagnosis - Visit Plan Frequency: 2-3x /Week Duration: 4-6 Weeks TEXT: Thank you for the opportunity to evaluate your patient. For Medicare and Medicare HMO plans, please review the plan of care and approve it. It will need to be FAXED BACK to us at [phone] for Medicare purposes. Please let me know if there are questions or concerns regarding this plan of care. Physician Signature: Date:
--- NOTE | 2022-04-03 11:52 | HP.OTDCSUM ---
It has been my pleasure to treat KRIS RILEY under orders from Dr. Nimesh Bosch DO, for the diagnosis of right distal radius fx for a total of 9 visit(s). Please see the following information for a summary of their discharge status. % Improvement: 90 Objective/Function: right wrist ROM 65/50. Career Development Director strength right 30# left 35#. pt was ed. on use of scar gel sheet at night to decrease keloid scar-. Tripod pinch. R-8#. Lateral pinch. R-10#. pt advised to use right UE as able- Patient Goals: Regain Strength, Use Hand/Wrist/Arm Normally Again, Be More Independent in ADLS Goal:ROM equal to unaffected hand: Yes Goal:Career Development Director/Pinch strength at least 75% of unaffected hand: Yes Goal:No pain with affected hand use: Yes Goal:Full use of affected hand in daily activities including: Yes Goal:Decrease scar hypersensitivity: Yes Plan: continue POC Discharge Comments: pt was seen for 9 OT session following a right radius ORIF. pt has met goals in OT and reports she has returned to her PLOF with all ADLS and IADLS. If there are questions or concerns regarding this patient's occupational therapy, please fell free to call me at [phone]. Thank you for the referral of this patient. Sincerely, Blessing Carlson, OTR/L, CHT
== END 2022-04-03 12:24 | disposition home or self-care (01) ==
LOC: OT 11:30
PROVIDERS: PCP Nurse Practitioner Family; Referring Provider Orthopaedic Surgery; Visit Provider Orthopaedic Surgery
DX: S52.501A Unspecified fracture of the lower end of right radius, initial encounter for closed fracture (principal); S52.601A Unspecified fracture of lower end of right ulna, initial encounter for closed fracture; Z47.89 Encounter for other orthopedic aftercare
CPT/HCPCS: 97110; 97140; 97166; 97168; 97530

== ENCOUNTER → 2022-04-22 | Outpatient (CLI) | payer OTHER, SELFPAY ==
[2022-04-30 16:41] LABS: HPV APTIMA, High Risk Negative (Negative)
== END | disposition home or self-care (01) ==
PROVIDERS: PCP Nurse Practitioner Family; Visit Provider Registered Nurse
DX: Z12.4 Encounter for screening for malignant neoplasm of cervix (principal)
CPT/HCPCS: 87624; 88175; G0145

== ENCOUNTER → 2022-09-03 | Outpatient (CLI) | payer OTHER, SELFPAY ==
[2022-09-03 12:48] LABS: Absolute Lymphocyte Count 1.55 X10^3/uL (0.83-4.51); Absolute Neutrophil Count 7.2 X10^3/uL (2.0-7.7); Basophil# 0.05 X10^3/uL; Basophil% 0.5 % (0-1); Differential Indicated SCAN CRITERIA MET; Eosinophil# 0.08 X10^3/uL; Eosinophils% 0.8 % (0-5); Hematocrit 33.8 % (37-47); Hemoglobin 8.3 g/dL (12.0-15.0); Lymphocyte # 1.55 X10^3/ul (0.83-4.51); Lymphocyte % 16.1 % (19-41); Mean Corp Hgb Conc 24.6 g/dL (32-36); Mean Corpuscular Hgb 17.2 pg (27.0-32.0); Mean Corpuscular Volume 70.1 fL (81-99); Mean Platelet Vol. 8.8 fl (6.2-12.0); Monocyte# 0.72 X10^3/uL; Monocyte% 7.5 % (0-10); NRBC Flagged by Analyzer 0 % (0-5); Neutrophil # 7.22 X10^3/uL (2.7-7.7); Neutrophil % 74.8 % (47-70); POSITIVE MORPHOLOGY YES; Platelet Count 502 K/mm3 (150-450); RBC Distribution Width CV 21.5 % (11.6-14.6); RBC Distribution Width SD 52.6 fl (35.1-43.9); Red Blood Count 4.82 M/mm3 (4.2-5.4); White Blood Count 9.7 K/mm3 (4.4-11.0)
[2022-09-03 13:15] LABS: Vitamin B12 239 pg/mL (211-911); Vitamin D,25 Hydroxy 18.9 ng/mL
[2022-09-03 13:24] LABS: Anisocytosis 2+; Differential Comment SCANNED; Hypochromasia 1+; Microcytosis 2+
[2022-09-03 13:51] LABS: ALB/GLOB Ratio 0.7 RATIO (0.9-2.4); AST(SGOT) 12 U/L (15-37); Alanine Aminotransfer ALT/SGPT 20 U/L (13-56); Albumin, Serum 3.1 g/dL (3.2-5.0); Alkaline Phosphatase 131 U/L (45-117); Anion Gap 3 (5-15); BUN 13 mg/dL (7-18); BUN/Creat Ratio 17.4 RATIO (10-20); Calcium,Total 8.7 mg/dL (8.5-10.1); Chloride 107 mmol/L (98-107); Creatinine, Serum 0.75 mg/dL (0.55-1.02); EST Glomerular Filtration Rate 86 mL/min (>60); Est Glom Filt Rate - Afr Amer 104 mL/min (>60); Ferritin 2 ng/mL (8-252); Globulin 4.6 g/dL (2.2-4.2); Glucose 79 mg/dL (74-106); Iron 15 ug/dL (50-170); Iron Binding Capacity,Total 507 ug/dL (250-450); Potassium 4.1 mmol/L (3.5-5.1); Protein, Total 7.7 g/dL (6.4-8.2); Sodium Level 137 mmol/L (136-145); Thyroid Stim Hormone (TSH) 1.04 uIU/mL (0.358-3.74)
== END | disposition home or self-care (01) ==
LOC: BIMLAB 10:01
PROVIDERS: PCP Nurse Practitioner Family; Referring Provider Nurse Practitioner Family; Visit Provider Nurse Practitioner Family
DX: D50.9 Iron deficiency anemia, unspecified (principal); F41.8 Other specified anxiety disorders; G47.00 Insomnia, unspecified; E56.9 Vitamin deficiency, unspecified
CPT/HCPCS: 36415; 80053; 82306; 82607; 82728; 83540; 83550; 84443; 85025

== ENCOUNTER 2022-12-05 10:24 | Day surgery (SDC) | payer OTHER, SELFPAY ==
[2022-12-05] VITALS (7 sets, daily range): BP systolic 106–125; BP diastolic 64–76; PULSE 85–94; RESP 18–36; TEMP 36.4–37.2; O2SAT 96–100; BMI 38.5
--- NOTE | 2022-12-05 | COLBX_PTH ---
PATIENT: KRIS RILEY LOC: EN U#:[id number] AGE/SX: 52/F ROOM: RE12/05/[address]: Dr. Kemar Hua DO : 1970 BED: DIS: 12/05/2022 SPEC #: [id number] RECD: 12/05/22 13:15 STATUS: YOUNG SAGE #: [id number] YONNY: 12/05/22 00:[address]: Kemar Hua DEPT: SURGICAL PATHOLOGY RECD BY: Jaspal Arriaza ENTERED: 12/05/22 13:16 SP TYPE: COLON BX OT DR: Jai Santos, HEEL COVER SOFTENER-C Tissues: Ascending colon Procedures: Surgery Specimen Level IV HEADER OPERATION: Colonoscopy with biopsy - open access (MAC) PRE-OP DIAGNOSIS: Screening TISSUE SUBMITTED: Ascending colon polyp biopsy MICROSCOPIC DIAGNOSIS Ascending colon polyp, biopsy: Fragments of hyperplastic polyp. TANMAY:sarina 12/06/2022 MICROSCOPIC DESCRIPTION Slides are reviewed. GROSS DESCRIPTION Received in fixative is one container labeled with the patient's name and designated ascending colon polyp. The specimen consists of multiple irregular fragments of light fisher soft tissue that in aggregate measure 1.0 x 0.5 x 0.1 cm. The specimen is totally submitted in one cassette. / AM:sarina 12/05/2022 TC:1 CPT: 72122
--- NOTE | 2022-12-05 10:44 | PCM.HP.STD ---
HPI - General General Date of Admission: 12/05/22 Date of Service: 12/05/22 Chief Complaint: Positive Cologuard HPI Narrative KRIS RILEY, is a 52 F who presents today for screening colonoscopy. She has not had a colonoscopy in past. She had a Cologuard and it was positive. She does not have abdominal pain. She has not seen any bleeding per rectum. She has no family history of colon cancer. [facility] Medical History (Updated 12/03/22 @ 09:43 by Cyndie Steele) Allergies Anemia Anxiety Back pain Back problem Breast lump Broken wrist Chronic cough Cough Cough Depression Depression with anxiety Diarrhea Elbow fracture History of drug abuse History of gallstones History of pneumonia History of stress test IBS (irritable bowel syndrome) Injury of back Insomnia Iron deficiency anemia MRSA infection Post-menopausal RLQ abdominal pain Shortness of breath on exertion Sleep apnea Smoker Tobacco abuse Vitamin deficiency Wears dentures Wears glasses Home Medications melatonin 10 mg tablet 10 mg PO QHS 01/30/22 [History Last Taken Unknown] aripiprazole 15 mg tablet 15 mg PO DAILY #90 tabs 10/01/22 [Rx Last Taken Unknown] duloxetine 60 mg capsule,delayed release 60 mg PO DAILY #90 caps 10/01/22 [Rx Last Taken Unknown] trazodone 100 mg tablet 100 mg PO QHS #90 tabs 10/01/22 [Rx Last Taken Unknown] Allergy/AdvReac Type Severity Reaction Status Date / Time amoxicillin [From Augmentin] Allergy Mild Diarrhea Verified 09/03/22 09:24 clavulanic acid Allergy Mild Diarrhea Verified 09/03/22 09:24 [From Augmentin] sulfamethoxazole AdvReac Intermediate shut Verified 09/03/22 09:24 [From Bactrim] liver down trimethoprim [From Bactrim] AdvReac Intermediate shut Verified 09/03/22 09:24 liver down Family History Grandmother CVA (cerebral vascular accident) Diabetes Father , due to brain cancer Cancer Brain cancer. Other Alcoholism Anxiety Depression Mental disorder Myocardial infarction Suicide attempt Surgical History (Updated 12/03/22 @ 09:43 by Cyndie Steele) H/O right wrist surgery History of back surgery History of colonoscopy History of elbow surgery History of endometrial ablation Hx laparoscopic cholecystectomy Social History number of children: 1 other: spouse: Juvenal Smoking Status: Current every day smoker tobacco type: cigarettes quit status: has quit before counseling given: counseling >3 minutes alcohol intake: never substance use type: does not use what type of physical activity do you participate in: none ROS Review of Systems ROS Unobtainable: other Constitutional Constitutional: Denies fatigue, fever(s), poor appetite, weight gain or weight loss ENT HEENT: Denies mouth lesions Cardiovascular Cardiovascular: Denies abdominal bloating, abdominal edema or abdominal pain Respiratory/Chest Respiratory/Chest: Denies change in mental status, change in phlegm color, chest congestion or chest tightness Gastrointestinal Gastrointestinal: Denies belching, bloating, change in bowel habits, change in stool character, chewing difficulty, coffee ground emesis, constipation, cramping, diarrhea, dyspepsia, dysphagia, early satiety, excessive flatus, fecal incontinence, heartburn, hematemesis, hematochezia, hemorrhoids, loose stools, melena, nausea, odynophagia, rectal bleeding, tenesmus, vomiting or weight changes Genitourinary Genitourinary: Denies abdominal discomfort, burning urination or itching Musculoskeletal Musculoskeletal: Reports as per HPI; Denies muscle weakness or myalgias Integumentary Integumentary: Denies jaundice Neurologic Neurologic: Denies lack of coordination or weakness Psychiatric Psychiatric: Denies confusion, depression, memory loss, mood swings, paranoia or suicidal ideation Endocrine Endocrinology: Denies systems reviewed and no addt'l complaints, except as documented Hematologic/Lymphatic Hematologic/Lymphatic: Denies anemia, easy bleeding, easy bruising or lymphadenopathy Allergic/Immunologic Allergic/Immunologic: Denies systems reviewed and no addt'l complaints, except as documented Physical Exam Const alert, oriented x3, no apparent distress, healthy appearing and well nourished General Appearance: cooperative, comfortable, well kempt and well developed Orientation / Consciousness: awake and oriented to person HEENT Head and Scalp: normocephalic and atraumatic Face and Sinus: normal facial exam Mouth: oral and palatal mucosa normal Eyes General Eye: normal appearance of both eyes Neck full ROM Lymph Lymphatic: no lymphadenopathy noted Chest inspection of chest normal Resp normal respiratory effort and no use of accessory muscles Cardio regular rate and regular rhythm GI normal to inspection, nondistended, normoactive bowel sounds, soft to palpation, non-tender, non-distended and no masses Auscultation: normoactive bowel sounds Palpation: soft Percussion: normal to percussion Rectal Exam: visual inspection normal and normal sphincter tone no CVA tenderness Back/Spine no CVA tenderness and normal ROM Extremity normal to inspection Peripheral Pulses: Yes pulses 2+ throughout Skin no rashes or lesions noted General Skin Exam: no breakdown, elasticity normal and turgor normal Neuro oriented x3 Motor Exam: strength 5/5 throughout Psych mental status grossly normal Appearance: grossly normal Attitude: calm Activity / Motor Behavior: appropriate eye contact Speech: normal speech Thought Process: normal thought process Thought Content: normal thought content Attention / Concentration: attention grossly intact Memory / Cognition: memory grossly intact Insight: insight good Judgement: judgement good Assessment & Plan Assessment/Plan (1) Encounter for screening for malignant neoplasm of colon: PLAN: I have examined the patient and the H&P has been reviewed. There are no clinical changes since date of exam.
[2022-12-05] MEDS: Lactated Ringers 1,000 ML 15 ML IV (10:50)
--- NOTE | 2022-12-05 11:35 | OP.CCLET_ITS ---
12/05/2022 Jai Santos NP [address] [place] [address] [place] [address] Re : Colonoscopy procedure for Zahida Bruce Dear Mr. Santos This procedure was performed on November. My impressions and recommendations are as follows: Impressions : - One 5 mm polyp in the ascending colon, removed with a cold snare. Resected and retrieved. - The entire examined colon is normal on direct and retroflexion views. - Non-bleeding internal hemorrhoids. Recommendations : - Repeat colonoscopy in 5 years for surveillance. - Continue present medications. My findings are described in the full procedure note, which is enclosed. If I can be of further assistance, please feel free to contact me at . Sincerely, Kemar Hua, 12/05/2022 11:34:42 AM This report has been signed electronically.
--- NOTE | 2022-12-05 11:35 | OP.COLON_ITS ---
Patient Name: Zahida Bruce Procedure Date: 12/05/2022 11:04 AM Date of : 1970 Age: 52 Procedure: Colonoscopy Indications: Screening for colorectal malignant neoplasm Providers: Kemar Hua DO Medicines: Monitored Anesthesia Care Patient Profile: This is a 52 year old female. Refer to note in patient chart for documentation of history and physical. Last Colonoscopy: none. The patient's first colonoscopy is today. Complications: No immediate complications. Procedure: Pre-Anesthesia Assessment: - Prior to the procedure, a History and Physical was performed, and patient medications and allergies were reviewed. The risks and benefits of the procedure and the sedation options and risks were discussed with the patient. All questions were answered and informed consent was obtained. Patient identification and proposed procedure were verified by the physician. Mental Status Examination: normal. Airway Examination: normal oropharyngeal airway and neck mobility. Prophylactic Antibiotics: The patient does not require prophylactic antibiotics. Prior Anticoagulants: The patient has taken no previous anticoagulant or antiplatelet agents. After reviewing the risks and benefits, the patient was deemed in satisfactory condition to undergo the procedure. The anesthesia plan was to use monitored anesthesia care (MAC). Immediately prior to administration of medications, the patient was re-assessed for adequacy to receive sedatives. The heart rate, respiratory rate, oxygen saturations, blood pressure, adequacy of pulmonary ventilation, and response to care were monitored throughout the procedure. The physical status of the patient was re-assessed after the procedure. After I obtained informed consent, the scope was passed under direct vision. Throughout the procedure, the patient's blood pressure, pulse, and oxygen saturations were monitored continuously. The pediatric colonoscope was introduced through the anus and advanced to the cecum, identified by appendiceal orifice and ileocecal valve. The colonoscopy was performed without difficulty. The patient tolerated the procedure well. The quality of the bowel preparation was adequate. Scope In: 11:14:44 AM Scope Withdrawal Time 0 hours 11 minutes 11 seconds Scope Out: 11:30:39 AM Total Procedure Duration Time 0 hours 15 minutes 55 seconds Findings: The perianal and digital rectal examinations were normal. A 5 mm polyp was found in the ascending colon. The polyp was sessile. The polyp was removed with a cold snare. Resection and retrieval were complete. Verification of patient identification for the specimen was done. Estimated blood loss was minimal. The entire examined colon appeared normal on direct and retroflexion views. Non-bleeding internal hemorrhoids were found during retroflexion. The hemorrhoids were medium-sized. Impression: - One 5 mm polyp in the ascending colon, removed with a cold snare. Resected and retrieved. - The entire examined colon is normal on direct and retroflexion views. - Non-bleeding internal hemorrhoids. Recommendation: - Repeat colonoscopy in 5 years for surveillance. - Continue present medications. Procedure Code(s): --- Professional --- 89118, Colonoscopy, flexible; with removal of tumor(s), polyp(s), or other lesion(s) by snare technique CPT copyright 2017 [employer]. All rights reserved. The codes documented in this report are preliminary and upon dielectric press operator review may be revised to meet current compliance requirements. Kemar Hua DO 12/05/2022 11:34:42 AM This report has been signed electronically. Number of Addenda: 0 Note Initiated On: 12/05/2022 11:04 AM
== END 2022-12-05 12:19 | disposition home or self-care (01) ==
LOC: EN 10:25 → AC 10:26
PROVIDERS: PCP Nurse Practitioner Family; Referring Provider Nurse Practitioner Family; Visit Provider Internal Medicine Gastroenterology
PROC: 0DJD8ZZ Inspection of Lower Intestinal Tract, Via Natural or Artificial Opening Endoscopic (ICD-10-PCS; CPT 45378; principal; 2022-12-05 11:25)
DX: Z12.11 Encounter for screening for malignant neoplasm of colon (principal); K64.8 Other hemorrhoids; K63.5 Polyp of colon; K62.5 Hemorrhage of anus and rectum; F17.210 Nicotine dependence, cigarettes, uncomplicated
CPT/HCPCS: 45385; 88305; J7120; J2405

== ENCOUNTER → 2023-03-05 | Outpatient (CLI) | payer OTHER, SELFPAY ==
[2023-03-05 15:22] LABS: Absolute Lymphocyte Count 1.71 X10^3/uL (0.83-4.51); Absolute Neutrophil Count 5.9 X10^3/uL (2.0-7.7); Basophil# 0.05 X10^3/uL; Basophil% 0.6 % (0-1); Eosinophil# 0.13 X10^3/uL; Eosinophils% 1.6 % (0-5); Hematocrit 31.1 % (37-47); Hemoglobin 7.7 g/dL (12.0-15.0); Lymphocyte # 1.71 X10^3/ul (0.83-4.51); Lymphocyte % 20.4 % (19-41); Mean Corp Hgb Conc 24.8 g/dL (32-36); Mean Corpuscular Hgb 17.2 pg (27.0-32.0); Mean Corpuscular Volume 69.4 fL (81-99); Mean Platelet Vol. 9.1 fl (6.2-12.0); Monocyte# 0.54 X10^3/uL; Monocyte% 6.4 % (0-10); NRBC Flagged by Analyzer 0 % (0-5); Neutrophil # 5.93 X10^3/uL (2.7-7.7); Neutrophil % 70.8 % (47-70); POSITIVE MORPHOLOGY YES; Platelet Count 466 K/mm3 (150-450); RBC Distribution Width CV 21.5 % (11.6-14.6); RBC Distribution Width SD 52.5 fl (35.1-43.9); Red Blood Count 4.48 M/mm3 (4.2-5.4); White Blood Count 8.4 K/mm3 (4.4-11.0)
[2023-03-05 15:33] LABS: Differential Indicated SCAN CRITERIA MET
[2023-03-05 15:56] LABS: ALB/GLOB Ratio 0.7 RATIO (0.9-2.4); AST(SGOT) 12 U/L (15-37); Alanine Aminotransfer ALT/SGPT 28 U/L (13-56); Albumin, Serum 3.2 g/dL (3.2-5.0); Alkaline Phosphatase 132 U/L (45-117); Anion Gap 3 (5-15); BUN 13 mg/dL (7-18); BUN/Creat Ratio 17.5 RATIO (10-20); Calcium,Total 8.8 mg/dL (8.5-10.1); Chloride 107 mmol/L (98-107); Creatinine, Serum 0.74 mg/dL (0.55-1.02); EST Glomerular Filtration Rate 87 mL/min (>60); Est Glom Filt Rate - Afr Amer 105 mL/min (>60); Ferritin 2 ng/mL (8-252); Globulin 4.7 g/dL (2.2-4.2); Glucose 112 mg/dL (74-106); Iron 17 ug/dL (50-170); Iron Binding Capacity,Total 544 ug/dL (250-450); Potassium 3.9 mmol/L (3.5-5.1); Protein, Total 7.9 g/dL (6.4-8.2); Sodium Level 139 mmol/L (136-145)
[2023-03-07 14:09] LABS: Deamidated Gliadin IgA 5 units (0-19); Deamidated Gliadin IgG 2 units (0-19); Endomysial Antibody IgA Negative (Negative); Immunoglobulin A 476 mg/dL (87-352); t-Transglutaminase IgA <2 U/mL (0-3)
== END | disposition home or self-care (01) ==
LOC: BIMLAB 13:18
PROVIDERS: PCP Internal Medicine; Referring Provider Internal Medicine; Visit Provider Internal Medicine
DX: D50.9 Iron deficiency anemia, unspecified (principal); E56.9 Vitamin deficiency, unspecified
CPT/HCPCS: 36415; 80053; 82306; 82728; 82784; 83516; 83540; 83550; 85025; 86255

== ENCOUNTER 2023-03-19 13:12 | Outpatient (CLI) | payer OTHER, SELFPAY ==
[2023-03-19 13:24] VITALS: BP 136/73; PULSE 70; RESP 18; TEMP 36.4; O2SAT 100; BMI 21.2
[2023-03-19] MEDS: 0.9% NaCl Peripheral Flush Adult/Peds IV (13:56)
[2023-03-19] MEDS: Iron Sucrose Complex 200 MG in 0.9% Normal Saline (100mL Bag) 100 ML 220 MG IV (13:56)
[2023-03-19] MEDS: 0.9% NaCl IVPB Med Flush (250 mL) 15 ML IV (13:56)
[2023-03-19 15:08] VITALS: BP 119/65; PULSE 67
== END 2023-03-19 13:13 | disposition home or self-care (01) ==
LOC: MEDOUTP 13:13
PROVIDERS: PCP Internal Medicine; Referring Provider Internal Medicine; Visit Provider Internal Medicine
DX: R71.8 Other abnormality of red blood cells (principal)
CPT/HCPCS: 96365; J1756; J7050; A4216

== ENCOUNTER 2023-03-21 09:40 | Outpatient (CLI) | payer OTHER, SELFPAY ==
[2023-03-21] MEDS: 0.9% NaCl IVPB Med Flush (250 mL) 15 ML IV (09:53)
[2023-03-21] MEDS: 0.9% NaCl Peripheral Flush Adult/Peds IV (09:53)
[2023-03-21] MEDS: Iron Sucrose Complex 200 MG in 0.9% Normal Saline (100mL Bag) 100 ML 220 MG IV (09:53)
[2023-03-21 10:00] VITALS: BP 140/67; PULSE 82; RESP 16; TEMP 35.8; O2SAT 97; BMI 38.9
[2023-03-21 10:40] VITALS: BP 120/61; PULSE 64; RESP 16; TEMP 36.3; O2SAT 93
== END 2023-03-21 09:41 | disposition home or self-care (01) ==
PROVIDERS: PCP Internal Medicine; Referring Provider Internal Medicine; Visit Provider Internal Medicine
DX: R71.8 Other abnormality of red blood cells (principal)
CPT/HCPCS: 96365; J1756; J7050; A4216

== ENCOUNTER 2023-03-24 13:15 | Outpatient (CLI) | payer OTHER, SELFPAY ==
[2023-03-24] MEDS: 0.9% NaCl IVPB Med Flush (250 mL) 15 ML IV (13:29)
[2023-03-24] MEDS: 0.9% NaCl Peripheral Flush Adult/Peds IV (13:29)
[2023-03-24] MEDS: Iron Sucrose Complex 200 MG in 0.9% Normal Saline (100mL Bag) 100 ML 220 MG IV (13:29)
[2023-03-24 13:31] VITALS: BP 122/67; PULSE 68; RESP 20; TEMP 36.2; O2SAT 98; BMI 38.9
[2023-03-24 14:32] VITALS: BP 125/66; PULSE 79; RESP 18
== END 2023-03-24 13:16 | disposition home or self-care (01) ==
LOC: MEDOUTP 13:15
PROVIDERS: PCP Internal Medicine; Referring Provider Internal Medicine; Visit Provider Internal Medicine
DX: R71.8 Other abnormality of red blood cells (principal)
CPT/HCPCS: 96365; J1756; J7050; A4216

== ENCOUNTER 2023-03-26 13:16 | Outpatient (CLI) | payer OTHER, SELFPAY ==
[2023-03-26] MEDS: 0.9% NaCl Peripheral Flush Adult/Peds IV (13:25)
[2023-03-26] MEDS: 0.9% NaCl IVPB Med Flush (250 mL) 15 ML IV (13:26)
[2023-03-26 13:31] VITALS: BP 125/51; PULSE 72; RESP 16; TEMP 36.6; BMI 38.9
[2023-03-26] MEDS: Iron Sucrose Complex 200 MG in 0.9% Normal Saline (100mL Bag) 100 ML 220 MG IV (13:35)
[2023-03-26 14:32] VITALS: BP 135/65; RESP 18; TEMP 36.6
== END 2023-03-26 13:17 | disposition home or self-care (01) ==
LOC: MEDOUTP 13:16
PROVIDERS: PCP Internal Medicine; Referring Provider Internal Medicine; Visit Provider Internal Medicine
DX: R71.8 Other abnormality of red blood cells (principal)
CPT/HCPCS: 96365; J1756; J7050; A4216

== ENCOUNTER 2023-03-28 09:49 | Outpatient (CLI) | payer OTHER, SELFPAY ==
[2023-03-28 10:11] VITALS: BP 132/60; PULSE 83; RESP 16; TEMP 36.3; O2SAT 97; BMI 38.9
[2023-03-28] MEDS: 0.9% NaCl IVPB Med Flush (250 mL) 15 ML IV (10:17)
[2023-03-28] MEDS: Iron Sucrose Complex 200 MG in 0.9% Normal Saline (100mL Bag) 100 ML 220 MG IV (10:17)
[2023-03-28] MEDS: 0.9% NaCl Peripheral Flush Adult/Peds IV (10:17)
[2023-03-28 11:04] VITALS: BP 115/63; PULSE 70; RESP 16
== END 2023-03-28 09:50 | disposition home or self-care (01) ==
LOC: MEDOUTP 09:49
PROVIDERS: PCP Internal Medicine; Referring Provider Internal Medicine; Visit Provider Internal Medicine
DX: R71.8 Other abnormality of red blood cells (principal)
CPT/HCPCS: 96365; J1756; J7050; A4216

== ENCOUNTER → 2023-03-31 | Outpatient (CLI) | payer OTHER, SELFPAY ==
--- NOTE | 2023-03-31 12:29 | BI_ITS ---
MAMMOGRAPHY - BILATERAL SCREENING REASON FOR EXAM: Female, 53 years old. Routine annual screening examination. PERTINENT HISTORY: Non-contributory. TECHNIQUE: Digital bilateral breast jazzy (3D mammographic acquisition) in the CC and MLO projections. 2-D mediolateral oblique (MLO) and craniocaudad (CC) views of both breasts were obtained. CAD: Full Field Digital Mammography with Computer Added Detection was performed. COMPARISON: Comparison is made with prior study April 18, 2022. FINDINGS: Breast Composition: The breasts are almost entirely fatty. There are no dominant masses or suspicious calcifications. Fat-containing left axillary lymph node. No other significant abnormalities are identified. There has been no significant change since the prior study. BI/SCRN MAMM (CAD)W/JAZZY BILAT IMPRESSION: Stable bilateral screening mammogram. Yearly follow-up mammogram recommended. (A) ASSESSMENT CATEGORY: BIRADS Category 2: Benign. A letter regarding these results will be sent to the patient by the facility within 30 days. Approximately 10% of breast cancers are not detected by mammography. A normal mammogram should not delay biopsy of a clinically suspicious abnormality. [id number] Electronically Signed: Trevor Cornejo MD at 13:27 EST ,
== END | disposition home or self-care (01) ==
LOC: OPBI 12:27
PROVIDERS: PCP Internal Medicine; Referring Provider Internal Medicine; Visit Provider Internal Medicine
DX: Z12.31 Encounter for screening mammogram for malignant neoplasm of breast (principal)
CPT/HCPCS: 77063; 77067

== ENCOUNTER → 2023-05-06 | Outpatient (CLI) | payer OTHER, SELFPAY | END | disposition home or self-care (01) | LOC: SL 13:05 | PROVIDERS: PCP Internal Medicine; Referring Provider Internal Medicine; Visit Provider Internal Medicine | DX: G47.33 Obstructive sleep apnea (adult) (pediatric) (principal) | CPT/HCPCS: 95806 ==

== ENCOUNTER → 2023-06-11 | Outpatient (CLI) | payer OTHER, SELFPAY ==
[2023-06-11 15:37] LABS: Absolute Lymphocyte Count 1.61 X10^3/uL (0.83-4.51); Absolute Neutrophil Count 5.2 X10^3/uL (2.0-7.7); Basophil# 0.03 X10^3/uL; Basophil% 0.4 % (0-1); Eosinophils% 1.3 % (0-5); Hematocrit 44.2 % (37-47); Hemoglobin 12.9 g/dL (12.0-15.0); Lymphocyte # 1.61 X10^3/ul (0.83-4.51); Lymphocyte % 21.5 % (19-41); Mean Corp Hgb Conc 29.2 g/dL (32-36); Mean Corpuscular Hgb 25.8 pg (27.0-32.0); Mean Corpuscular Volume 88.4 fL (81-99); Mean Platelet Vol. 8.8 fl (6.2-12.0); Monocyte# 0.59 X10^3/uL; Monocyte% 7.9 % (0-10); NRBC Flagged by Analyzer 0 % (0-5); Neutrophil # 5.15 X10^3/uL (2.7-7.7); Neutrophil % 68.8 % (47-70); POSITIVE MORPHOLOGY YES; Platelet Count 382 K/mm3 (150-450); RBC Distribution Width CV 20.3 % (11.6-14.6); RBC Distribution Width SD 68.1 fl (35.1-43.9); White Blood Count 7.5 K/mm3 (4.4-11.0)
[2023-06-11 15:50] LABS: Differential Indicated SCAN CRITERIA MET
[2023-06-11 16:07] LABS: Differential Comment SCANNED
[2023-06-11 16:11] LABS: Ferritin 6 ng/mL (8-252); Iron 28 ug/dL (50-170); Iron Binding Capacity,Total 450 ug/dL (250-450)
== END | disposition home or self-care (01) ==
LOC: BIMLAB 13:42
PROVIDERS: PCP Internal Medicine; Referring Provider Internal Medicine; Visit Provider Internal Medicine
DX: D50.9 Iron deficiency anemia, unspecified (principal)
CPT/HCPCS: 36415; 82728; 83540; 83550; 85025

== ENCOUNTER → 2023-06-17 | Outpatient (CLI) | payer OTHER, SELFPAY | END | disposition home or self-care (01) | LOC: SL 11:09 | PROVIDERS: PCP Internal Medicine; Referring Provider Internal Medicine; Visit Provider Internal Medicine | DX: G47.10 Hypersomnia, unspecified (principal) | CPT/HCPCS: 95806 ==

== ENCOUNTER → 2023-07-21 | Outpatient (CLI) | payer OTHER, SELFPAY | END | disposition home or self-care (01) | PROVIDERS: PCP Internal Medicine; Referring Provider Internal Medicine; Visit Provider Internal Medicine | DX: G47.33 Obstructive sleep apnea (adult) (pediatric) (principal); G47.31 Primary central sleep apnea | CPT/HCPCS: 95811 ==

== ENCOUNTER → 2023-09-10 | Outpatient (CLI) | payer OTHER, SELFPAY ==
[2023-09-10 17:27] LABS: Absolute Lymphocyte Count 1.59 X10^3/uL (0.83-4.51); Absolute Neutrophil Count 7.1 X10^3/uL (2.0-7.7); Basophil# 0.03 X10^3/uL; Basophil% 0.3 % (0-1); Eosinophil# 0.11 X10^3/uL; Eosinophils% 1.1 % (0-5); Hematocrit 45.1 % (37-47); Lymphocyte # 1.59 X10^3/ul (0.83-4.51); Lymphocyte % 16.5 % (19-41); Mean Corpuscular Hgb 29.5 pg (27.0-32.0); Mean Corpuscular Volume 94.9 fL (81-99); Mean Platelet Vol. 9.2 fl (6.2-12.0); Monocyte# 0.79 X10^3/uL; Monocyte% 8.2 % (0-10); NRBC Flagged by Analyzer 0 % (0-5); Neutrophil # 7.11 X10^3/uL (2.7-7.7); Neutrophil % 73.6 % (47-70); Platelet Count 358 K/mm3 (150-450); RBC Distribution Width CV 17.3 % (11.6-14.6); RBC Distribution Width SD 61.1 fl (35.1-43.9); Red Blood Count 4.75 M/mm3 (4.2-5.4); White Blood Count 9.7 K/mm3 (4.4-11.0)
[2023-09-10 17:55] LABS: ALB/GLOB Ratio 0.8 RATIO (0.9-2.4); AST(SGOT) 23 U/L (15-37); Alanine Aminotransfer ALT/SGPT 39 U/L (13-56); Albumin, Serum 3.3 g/dL (3.2-5.0); Alkaline Phosphatase 102 U/L (45-117); Anion Gap 3 (5-15); BUN 10 mg/dL (7-18); BUN/Creat Ratio 11.5 RATIO (10-20); Chloride 107 mmol/L (98-107); Cholesterol 165 mg/dL (200); Creatinine, Serum 0.87 mg/dL (0.55-1.02); EST Glomerular Filtration Rate 72 mL/min (>60); Est Glom Filt Rate - Afr Amer 88 mL/min (>60); Ferritin 17 ng/mL (8-252); Globulin 4.3 g/dL (2.2-4.2); Glucose 86 mg/dL (74-106); High Density Lipoprotein 47 mg/dL; Iron 54 ug/dL (50-170); Iron Binding Capacity,Total 398 ug/dL (250-450); Protein, Total 7.6 g/dL (6.4-8.2); Sodium Level 140 mmol/L (136-145); Triglycerides 159 mg/dL; Very Low Density Lipoprotein 32 mg/dL (5-40)
== END | disposition home or self-care (01) ==
LOC: BIMLAB 14:48
PROVIDERS: PCP Internal Medicine; Visit Provider Internal Medicine
DX: Z13.6 Encounter for screening for cardiovascular disorders (principal); D64.9 Anemia, unspecified
CPT/HCPCS: 36415; 80053; 80061; 82728; 83540; 83550; 85025

== ENCOUNTER → 2023-10-30 | Outpatient (CLI) | payer OTHER, SELFPAY ==
[2023-10-30 12:27] LABS: Absolute Lymphocyte Count 1.55 X10^3/uL (0.83-4.51); Absolute Neutrophil Count 6.1 X10^3/uL (2.0-7.7); Basophil# 0.05 X10^3/uL; Basophil% 0.6 % (0-1); Eosinophil# 0.12 X10^3/uL; Eosinophils% 1.4 % (0-5); Hematocrit 48.6 % (37-47); Hemoglobin 15.3 g/dL (12.0-15.0); Lymphocyte # 1.55 X10^3/ul (0.83-4.51); Lymphocyte % 18.1 % (19-41); Mean Corp Hgb Conc 31.5 g/dL (32-36); Mean Corpuscular Hgb 30.2 pg (27.0-32.0); Mean Corpuscular Volume 95.9 fL (81-99); Mean Platelet Vol. 8.8 fl (6.2-12.0); Monocyte# 0.66 X10^3/uL; Monocyte% 7.7 % (0-10); NRBC Flagged by Analyzer 0 % (0-5); Neutrophil # 6.14 X10^3/uL (2.7-7.7); Neutrophil % 71.8 % (47-70); Platelet Count 326 K/mm3 (150-450); RBC Distribution Width CV 14.5 % (11.6-14.6); RBC Distribution Width SD 50.3 fl (35.1-43.9); Red Blood Count 5.07 M/mm3 (4.2-5.4); White Blood Count 8.6 K/mm3 (4.4-11.0)
[2023-10-30 12:45] LABS: T4 Free Direct 0.97 ng/dL (0.76-1.46); Thyroid Stim Hormone (TSH) 0.85 uIU/mL (0.358-3.74)
[2023-10-30 15:37] LABS: Hemoglobin A1c 5.3 % (3.8-5.6)
[2023-10-31 15:08] LABS: Adrenocorticotropic Hormone 20.3 pg/mL (7.2-63.3)
== END | disposition home or self-care (01) ==
LOC: BIMLAB 09:32
PROVIDERS: PCP Internal Medicine; Referring Provider Nurse Practitioner; Visit Provider Nurse Practitioner
DX: R53.83 Other fatigue (principal)
CPT/HCPCS: 36415; 82024; 83036; 84439; 84443; 85025

== ENCOUNTER 2024-01-23 15:00 | Outpatient (RCR) | payer OTHER, SELFPAY ==
--- NOTE | 2024-01-14 17:57 | HP.PTEVAL ---
Patient's Visit Information Visit Information Visit Information: KRIS RILEY is a 53 year old F referred to Physical Therapy by USMAN Luna with a diagnosis of R pes anserine bursitis. Date of Evaluation: 01/14/24 Physical Therapist: Son Foley DPT Visit Plan Frequency: 2x /Week Duration: 4 Weeks Plan: Start with US to medial to medial joint line and pes anserine region of R knee. Adductors stretching, and HS stretching. Once symptoms have reduced add in quad strengthening. Subjective Subjective: Pt. is here today for her initial evaluation with diagnosis of R pes anserine bursitis. Pt. reports having increased pain for a few weeks now without mech an injury. Pt. reports a gradual increase in symptoms. Pt. report her knee is always pain, but is worse with standing, walking and stairs. Pt. is not currently working. She reports increased pain with all ADLs. No issues with sleeping, no N/T noted. Pt points to medial joint line when asked about pain. Pt. reports not trialing ice or heat, no relief with medications. She has been taking steroids without change in symptoms. Pt. is hopeful to reduce symptoms in order to complete all daily activities without limitations. Pain R knee: Pain Intensity (Out of 10): 7 Pain Intensity Range: 2 and 9 Objective Objective: POSTURE: Pt. has a wide ERICK in stance. PALPATION: Pt. has increased tenderness at medial joint line. When I initially palpated her pes anserine region on the R leg it was not painful, but when I did again she reports being sore. NEURO: Normal DTR of B patella and achilles tendons. Pt. is able to rise on heels and toes without issues. Pt. has normal sensation throughout BLEs. ROM: R knee: PROM 0-0-105deg. L knee 0-0-115deg. MMT: RLE: ankle 5/5 throughout; knee: ext 7.1# increase NW, flexion 15.7#; hip: flexion 6.1#. LLE: ankle 5/5 throughout; knee: ext 15.6#, flexion 16.1#; hip: flexion 10.3#. GAIT: Pt. has increased B hip ER with gait and tends to have decreased knee flexion during swing. Normal knee extension noted during stance phase. STAIRS: completed with reciprocal pattern and 2 HR. Increased pain noted with R stance phase with both ascending and decending. Special Tests R Knee Juan - Meniscus: Negative R Knee Anterior Drawer - ACL: Negative R Knee Posterior Drawer - PCL: Negative R Knee Valgus - MCL: Negative R Knee Varus - LCL: Negative Balance/Special Test Scores Lower Extremity Functional Score: 20 Goals Goal 1:: LTG: Pt. to be I with HEp. Goal Time Frame: 2-4 Weeks Goal 2:: LTG: pt. to be able to ambulate for 500' without increase in R knee pain Goal Time Frame: 4-6 Weeks Goal 3:: LTG: Pt. to have symmetrical strength between BLEs. Goal Time Frame: 4-6 Weeks Goal 4:: LTG: pt. to have no pain with palpation of medial joint line of R knee. Goal Time Frame: 4-6 Weeks Rehabilitation Potential Physical Therapy Diagnosis: Pt. has signs and symptoms consistent with R pes anserine bursitis. Pt. has marked R LE weakness, most notably with her quad. She has marked B knee hypomobility, but none painful with over pressures. Her pain at a little but higher than than her pes anserine bursa, but did at times report pain at her bursa. I would not be surprised if she had some medial compartment arthritis. Hard to determine any meniscal issues, but would have to be more of a degenerative type due to no mechanical accident. I recommend trying some modalities to reduce her symptoms then progressing her strength as tolerated. Rehabilitation Potential: Good Anticipated Interventions Patient/Client Instruction: Educate patient on: Condition, Risk Factors and Benefits of Fitness Program For the Purpose of:: To improve health and function, To foster healthy habits, To improve decision making, To facilitate caregiver knowledge, To improve self management, To prevent re-injury and To improve ability to perform tasks related to life management Therapeutic Exercise to Include: Strength training, Power training, Postural training, Passive ROM and Active ROM For the Purpose of:: To decrease pain, To increase ROM, To improve nutrient delivery to tissue, To increase oxygenation perfusion, To improve muscle performance and motor function, To improve ability to perform ADL's and To increase tolerance to activity/condition/position Cryotherapy (ice pack, ice massage): Yes Thermo therapy (hot pack): Yes Ultrasound (thermal/non thermal): Yes For the Purpose of:: To decrease pain, To decrease swelling/inflammation and To increase ROM Text: Thank you for the opportunity to evaluate your patient. For Medicare and Medicare HMO plans, please review the plan of care and approve it. It will need to be FAXED BACK to us at [phone] for Medicare purposes. For Medicare only, by signing this I certify the plan of care. Please let me know if there are questions or concerns regarding this plan of care. Physician Signature: Date:
--- NOTE | 2024-06-24 07:11 | HP.PT.NRP ---
Patient Information Patient Information: KRIS RILEY was seen in my office for initial evaluation on 01/14/24. The following Plan of Care was established for this patient: POC Established Initial Frequency: 2x /Week Initial Duration: 4 Weeks Anticipated Interventions Patient/Client Instruction: Educate patient on: Condition, Risk Factors and Benefits of Fitness Program For the Purpose of:: To improve health and function, To foster healthy habits, To improve decision making, To facilitate caregiver knowledge, To improve self management, To prevent re-injury and To improve ability to perform tasks related to life management Therapeutic Exercise to Include: Strength training, Power training, Postural training, Passive ROM and Active ROM For the Purpose of:: To decrease pain, To increase ROM, To improve nutrient delivery to tissue, To increase oxygenation perfusion, To improve muscle performance and motor function, To improve ability to perform ADL's and To increase tolerance to activity/condition/position Cryotherapy (ice pack, ice massage): Yes Thermo therapy (hot pack): Yes Ultrasound (thermal/non thermal): Yes For the Purpose of:: To decrease pain, To decrease swelling/inflammation and To increase ROM Last Seen Last Seen: This patient was last seen in our office 01/23/24. Pertinent comments regarding their Physical therapy will appear below: Pt. was seen for 4 visits, but has not been back to PT since. Pt. will be DC from PT at this point in time. At this point I will be discontinuing this patient from physical therapy. I would be happy to see this patient again in the future if found appropriate by the physician. Thank you! Son Foley, DPT Balance/Gait/Functional tests Balance/Special Test Scores Lower Extremity Functional Score: 20
== END 2024-01-23 19:00 | disposition home or self-care (01) ==
LOC: PT 15:00
PROVIDERS: PCP Internal Medicine; Referring Provider Nurse Practitioner; Visit Provider Nurse Practitioner
DX: M70.50 Other bursitis of knee, unspecified knee (principal)
CPT/HCPCS: 97035; 97110; 97161

== ENCOUNTER → 2024-04-02 | Outpatient (CLI) | payer OTHER, SELFPAY ==
--- NOTE | 2024-04-02 10:33 | BI_ITS ---
MAMMOGRAPHY - BILATERAL SCREENING REASON FOR EXAM: Female, 54 years old. Routine annual screening examination. PERTINENT HISTORY: Non-contributory. History of left excisional breast biopsy. TECHNIQUE: Digital bilateral breast jazzy (3D mammographic acquisition) in the CC and MLO projections. 2-D mediolateral oblique (MLO) and craniocaudad (CC) views of both breasts were obtained. CAD: Full Field Digital Mammography with Computer Added Detection was performed. COMPARISON: Comparison is made with prior study dated March 31, 2023 and March 19, 2022. FINDINGS: Breast Composition: The breasts are almost entirely fatty. There are no dominant masses or suspicious calcifications. No other significant abnormalities are identified. There has been no significant change since the prior study. BI/SCRN MAMM (CAD)W/JAZZY BILAT IMPRESSION: Stable bilateral screening mammogram. Yearly follow-up mammogram recommended. (A) ASSESSMENT CATEGORY: BIRADS Category 1: Negative. A letter regarding these results will be sent to the patient by the facility within 30 days. Approximately 10% of breast cancers are not detected by mammography. A normal mammogram should not delay biopsy of a clinically suspicious abnormality. [id number] Electronically Signed: Trevor Cornejo MD at 11:19 EST ,
== END | disposition home or self-care (01) ==
LOC: OPBI 10:33
PROVIDERS: PCP Internal Medicine; Referring Provider Internal Medicine; Visit Provider Internal Medicine
DX: Z12.31 Encounter for screening mammogram for malignant neoplasm of breast (principal)
CPT/HCPCS: 77063; 77067

== ENCOUNTER → 2024-07-21 | Outpatient (CLI) | payer OTHER, SELFPAY ==
[2024-07-21 12:34] LABS: Absolute Lymphocyte Count 1.22 X10^3/uL (0.83-4.51); Absolute Neutrophil Count 5.9 X10^3/uL (2.0-7.7); Basophil# 0.04 X10^3/uL; Basophil% 0.5 % (0-1); Eosinophils% 1.2 % (0-5); Hemoglobin 16.3 g/dL (12.0-15.0); Lymphocyte # 1.22 X10^3/ul (0.83-4.51); Mean Corpuscular Hgb 30.8 pg (27.0-32.0); Mean Corpuscular Volume 96.4 fL (81-99); Mean Platelet Vol. 9.2 fl (6.2-12.0); Monocyte# 0.87 X10^3/uL; Monocyte% 10.7 % (0-10); NRBC Flagged by Analyzer 0 % (0-5); Neutrophil # 5.87 X10^3/uL (2.7-7.7); Neutrophil % 72.1 % (47-70); Platelet Count 334 K/mm3 (150-450); RBC Distribution Width CV 13.9 % (11.6-14.6); RBC Distribution Width SD 49.3 fl (35.1-43.9); Red Blood Count 5.29 M/mm3 (4.2-5.4); White Blood Count 8.1 K/mm3 (4.4-11.0)
[2024-07-21 13:04] LABS: ALB/GLOB Ratio 1.1 RATIO (0.9-2.4); AST(SGOT) 29 U/L (<=31); Alanine Aminotransfer ALT/SGPT 40 U/L (<=34); Albumin, Serum 4.2 g/dL (3.5-5.0); Alkaline Phosphatase 122 U/L (35-104); Anion Gap 11 (5-15); BUN 10 mg/dL (4-19); BUN/Creat Ratio 12.1 RATIO (10-20); Calcium,Total 9.8 mg/dL (7.6-11.0); Carbon Dioxide 27.5 mmol/L (21.0-32.0); Chloride 102 mmol/L (98-108); Cholesterol 164 mg/dL (<=200); Creatinine, Serum 0.85 mg/dL (0.70-1.20); EST Glomerular Filtration Rate 82 (>60); Globulin 3.9 g/dL (2.2-4.2); Glucose 88 mg/dL (70-99); High Density Lipoprotein 45 mg/dL; Low Density Lipoprotein Calc. 103 mg/dL; Potassium 4.4 mmol/L (3.3-5.1); Sodium Level 141 mmol/L (133-145); Total Bilirubin 0.36 mg/dL (0.00-1.30); Triglycerides 77 mg/dL; Very Low Density Lipoprotein 15 mg/dL (5-40); cholesterol:hdl ratio screen 3.64
== END | disposition home or self-care (01) ==
LOC: BIMLAB 10:19
PROVIDERS: PCP Internal Medicine; Referring Provider Internal Medicine; Visit Provider Internal Medicine
DX: I10 Essential (primary) hypertension (principal)
CPT/HCPCS: 36415; 80053; 80061; 85025

== ENCOUNTER → 2024-09-27 | Outpatient (CLI) | payer OTHER, SELFPAY ==
--- NOTE | 2024-09-27 11:06 | RAD_ITS ---
PROCEDURE: HIP, UNI W/ PELVIS 2-3 VIEWS 09/27/2024 REASON FOR EXAM: HIP PAIN TECHNIQUE: AP pelvis and two views right hip, 3 total images COMPARISON: None available FINDINGS: Symmetric appearing SI joints and pubic symphysis appear within limits. The hips appear within limits. The joint spaces appear within limits. No fracture or dislocation. RAD/HIP, UNI W/ Pelvis 2-3 Views IMPRESSION: Study appears within limits. Reading Location: [id number]
--- NOTE | 2024-09-27 11:10 | RAD_ITS ---
PROCEDURE: L/S SPINE MIN 4 VIEWS 09/27/2024 REASON FOR EXAM: BACK PAIN TECHNIQUE: Four views, 5 total images; AP, bilateral oblique and lateral COMPARISON: None available FINDINGS: 5 [id number] lumbar vertebral body types identified. No evidence of spondylolysis. Status post L5-S1 intervertebral disc spacers appear anatomic and intact. No fracture or malalignment. L3-4 mild disc space narrowing and degenerative endplate changes. No evidence of foraminal narrowing. Status post apparent cholecystectomy. Single fallopian tube clip right pelvis. RAD/L/S Spine Min 4 Views IMPRESSION: Status post L5-S1 intervertebral disc spacers appear anatomic and intact. No fracture or malalignment. L3-4 mild disc space narrowing and degenerative endplate changes. Reading Location: [id number]
== END | disposition home or self-care (01) ==
PROVIDERS: PCP Internal Medicine; Referring Provider Internal Medicine; Visit Provider Internal Medicine
DX: M54.9 Dorsalgia, unspecified (principal); M25.551 Pain in right hip
CPT/HCPCS: 72110; 73502

== ENCOUNTER → 2024-10-21 | Outpatient (CLI) | payer OTHER, SELFPAY ==
[2024-10-21 15:45] LABS: Absolute Lymphocyte Count 1.87 X10^3/uL (0.83-4.51); Absolute Neutrophil Count 7.2 X10^3/uL (2.0-7.7); Basophil# 0.05 X10^3/uL; Basophil% 0.5 % (0-1); Eosinophil# 0.16 X10^3/uL; Eosinophils% 1.6 % (0-5); Hematocrit 47.1 % (37-47); Hemoglobin 15.1 g/dL (12.0-15.0); Lymphocyte # 1.87 X10^3/ul (0.83-4.51); Lymphocyte % 18.4 % (19-41); Mean Corp Hgb Conc 32.1 g/dL (32-36); Mean Corpuscular Hgb 30.4 pg (27.0-32.0); Mean Corpuscular Volume 94.8 fL (81-99); Monocyte% 8.8 % (0-10); NRBC Flagged by Analyzer 0 % (0-5); Neutrophil # 7.17 X10^3/uL (2.7-7.7); Neutrophil % 70.4 % (47-70); Platelet Count 375 K/mm3 (150-450); RBC Distribution Width CV 14.2 % (11.6-14.6); RBC Distribution Width SD 49.2 fl (35.1-43.9); Red Blood Count 4.97 M/mm3 (4.2-5.4); White Blood Count 10.2 K/mm3 (4.4-11.0)
[2024-10-21 16:14] LABS: Anion Gap 11 (5-15); BUN 12 mg/dL (4-19); Calcium,Total 9.2 mg/dL (7.6-11.0); Carbon Dioxide 26.6 mmol/L (21.0-32.0); Chloride 102 mmol/L (98-108); Creatinine, Serum 0.79 mg/dL (0.70-1.20); EST Glomerular Filtration Rate 89 (>60); Glucose 98 mg/dL (70-99); Potassium 4.2 mmol/L (3.3-5.1); Sodium Level 140 mmol/L (133-145)
== END | disposition home or self-care (01) ==
LOC: BIMLAB 14:48
PROVIDERS: PCP Internal Medicine; Referring Provider Internal Medicine; Visit Provider Internal Medicine
DX: I10 Essential (primary) hypertension (principal)
CPT/HCPCS: 36415; 80048; 85025